=== PATIENT | male | born 1955 | race Hispanic/Latino ===

== ENCOUNTER 2016-11-25 20:10 | Emergency (ER) | payer BC ==
[2016-11-25 20:15] VITALS: BP 156/95
[2016-11-25] MEDS ORDERED: BOOSTRIX IM ONE (20:21)
[2016-11-25] MEDS ORDERED: NORCO 5/325 PO ONE (20:21)
[2016-11-25] MEDS ORDERED: XYLOCAINE 1% 20 mL INFILTRATI ONE (20:21)
--- NOTE | 2016-11-25 20:57 | XRay Report ---
FINAL REPORT EXAM: XR FINGER(S) 2+V LT HISTORY: fb 5th finger COMPARISONS: None. FINDINGS: Three views left hand A fishhook is seated within the volar soft tissues of the distal 5th finger. Additional hooks project over the hand on AP view. No fractures. 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 IMPRESSION: [place] is seated within the volar soft tissues of the distal 5th finger.
[2016-11-25] MEDS ORDERED: TRIPLE ANTIBIOTIC TP ONE (21:03)
[2016-11-25] MEDS ORDERED: KEFLEX PO ONE (21:03)
--- NOTE | 2016-11-25 21:19 | Emergency Department Report ---
Entered by JOSE JUAN RUCKER, acting as scribe for RAMON VARGHESE NP. - General Chief Complaint: Wound/Laceration Stated Complaint: FISHING HOOK IN LT HAND Time Seen by Provider: 11/25/16 20:18 Source: patient Mode of arrival: Ambulatory Limitations: No Limitations - History of Present Illness Initial Comments: Patient is a 61 y.o. male who presents to ED for evaluation of wound at fishhook embedded in the fifth digit of the left hand with associated constant, 10/10 pain. 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 The hernandez flipped, causing the fishhook to become embedded into the patient's digit with sudden onset pain. He notes that he attempted to pull the hook out of his digit on his own, but thinks he made the wound worse as the hook is barbed. Patient denies other focal pain or other injuries. -: Sudden, minutes(s) (30) Location: other (fifth digit of the left hand) Extremity Location: Left: Hand (5th finger ) Place: outdoors (while fishing) Patient Tetanus UTD: No Context: accidental Associated Symptoms: pain, suspect foreign body present, other (foreign body ( fishhook) present in digit). denies: loss of feeling/numbness, weakness followed by dizziness, nausea/vomiting, fever Treatments Prior to Arrival: other (Patient attempted to remove the fishhook and fears he made the wound worse as the hook was barbed. ) - Related Data Home Medications Medication Instructions Recorded Confirmed Last Taken Aspirin EC [Aspirin Enteric Coated 81 mg PO QDAY 03/17/15 03/17/15 03/17/15 TAB] AtorvaSTATin [Lipitor] 20 mg PO QDAY 03/17/15 03/17/15 03/17/15 Etanercept [Enbrel] 25 mg SQ 2XW 03/17/15 03/17/15 Unknown Prednisone [predniSONE (Delta) ER 5 mg PO QDAY 03/17/15 03/17/15 03/17/15 TAB] Ramipril 10 mg PO QDAY 03/17/15 03/17/15 03/17/15 Previous Rx's Medication Instructions Recorded Last Taken Type Oxycodone HCl/Acetaminophen 1 each PO Q6HR PRN #20 tablet 03/17/15 Unknown Rx [Percocet 10/325 mg] Cephalexin [Keflex] 500 mg PO Q6HR #28 capsule 11/25/16 Unknown Rx Allergies Allergy/AdvReac Type Severity Reaction Status Date / Time nalbuphine HCl [From Nubain] Allergy Unknown Verified 03/27/16 04:59 tramadol Allergy Unknown Verified 03/27/16 04:59 butorphanol tartrate AdvReac Unknown Verified 01/28/14 19:16 [From Stadol] ketorolac tromethamine AdvReac Unknown Verified 01/28/14 19:16 [From Toradol] ED Review of Systems Comment: All other systems reviewed and negative Constitutional: denies: chills, diaphoresis, fever Eyes: denies: eye pain ENT: denies: ear pain, throat pain Respiratory: denies: cough, shortness of breath, wheezing Cardiovascular: denies: chest pain, palpitations, syncope Gastrointestinal: denies: abdominal pain, nausea, vomiting Musculoskeletal: other (Positive for pain localized to wound at the fifth digit of the left hand. Negative for other focal pain.). denies: back pain Skin: other (Positive for wound with embedded fishhook at the fifth digit of the left hand. ). denies: rash Neurological: denies: headache, weakness Psychiatric: denies: anxiety, depression ED Past Medical Hx - Past Medical History Hx Hypertension: Yes Hx Arthritis: Yes Additional medical history: hyperlipidemia - Surgical History Additional Surgical History: open heart surgery, stomach surgery , right total knee replacement. - Social History Smoking Status: Never Smoker Substance Use Type: None - Medications Home Medications: Home Medications Medication Instructions Recorded Confirmed Last Taken Type Aspirin EC [Aspirin Enteric Coated 81 mg PO QDAY 03/17/15 03/17/15 03/17/15 History TAB] AtorvaSTATin [Lipitor] 20 mg PO QDAY 03/17/15 03/17/15 03/17/15 History Etanercept [Enbrel] 25 mg SQ 2XW 03/17/15 03/17/15 Unknown History Oxycodone HCl/Acetaminophen 1 each PO Q6HR PRN #20 tablet 03/17/15 Unknown Rx [Percocet 10/325 mg] Prednisone [predniSONE (Delta) ER 5 mg PO QDAY 03/17/15 03/17/15 03/17/15 History TAB] Ramipril 10 mg PO QDAY 03/17/15 03/17/15 03/17/15 History Cephalexin [Keflex] 500 mg PO Q6HR #28 capsule 11/25/16 Unknown Rx ED Physical Exam - General Limitations: No Limitations General appearance: alert, in no apparent distress, other (appears in pain, holding left hand ) - Head Head exam: Present: atraumatic, normocephalic - Eye Eye exam: Present: normal appearance, PERRL, EOMI. Absent: scleral icterus, conjunctival injection Pupils: Present: normal accommodation - ENT ENT exam: Present: normal exam, normal orophraynx, mucous membranes moist, normal external ear exam - Neck Neck exam: Present: normal inspection, full ROM. Absent: tenderness, meningismus, lymphadenopathy, thyromegaly - Respiratory Respiratory exam: Present: normal lung sounds bilaterally, other (Normal work of breathing. ). Absent: respiratory distress, wheezes, rales, rhonchi, accessory muscle use - Cardiovascular Cardiovascular Exam: Present: regular rate, normal rhythm, normal heart sounds. Absent: systolic murmur, diastolic murmur, rubs, gallop - GI/Abdominal GI/Abdominal exam: Present: soft. Absent: distended, tenderness - Rectal Rectal exam: Present: deferred - Extremities Exam Extremities exam: Present: tenderness, other ([place] to the left distal fifth digit). Absent: normal inspection - Expanded Upper Extremity Exam Left General: Present: foreign body (fishhook to the distal left fifth digit) Shoulder Exam: Present: normal inspection Upper Arm exam: Present: normal inspection Elbow exam: Present: normal inspection, full ROM Forearm Wrist exam: Present: normal inspection Hand Wrist exam: Present: full ROM (sp removal of fish hook), tenderness, swelling, other ([place] to the left distal fifth digit). Absent: normal inspection, nail avulsion, subungual hematoma - Back Exam Back exam: Present: normal inspection, full ROM - Neurological Exam Neurological exam: Present: alert, oriented X3 - Psychiatric Psychiatric exam: Present: normal affect, normal mood - Skin Skin exam: Present: warm, other ([place] to the distal fifth digit of the left hand. Otherwise C/D/I. ). Absent: rash ED Course Vital Signs 11/25/16 20:12 Temperature 97.9 F Pulse Rate 89 Respiratory 18 Rate Blood Pressure 156/95 O2 Sat by Pulse 100 Oximetry - Reevaluation(s) Reevaluation #1: 11/25/16 21:11 PT reports decrease pain sp fb removal. PT's TDap vaccine has been updated. PT given strict return precautions. PT verbalizes understanding. Reevaluation #2: 11/25/16 21:24 PT stated he had no pain medication at home. I originally wrote the pt a RX for Tylenol #3, however, after reviewing pt's RX hx in the [employer] aware website, discovered that he filled 120 tablets of Percocet yesterday. Will discontinue my RX. - Nerve Block Consent Obtained: verbal consent, emergent situation Local Anesthetic Used: Lidocaine 1% Amount of anesthesia used: 5 Side: left (5th finger ) Nerve Blocks: digital Procedure Successful: Yes Complications: none Patient Tolerated Procedure: well, no complications Additional Comments: After pt had good pain control. an 18 gauge needle was used to push soft tissue off of embedded fishing hook and the hook was backed out. the hook was removed in it's entirety. Puncture wound flushed with sterile saline. PT tolerated the procedure well. PT has no immediate complications. - Pulse Oximetry Interpretation Digit-Finger Initial Pulse Oximetry Readin Actions Taken: none ED Medical Decision Making - Radiology Data Radiology results: image reviewed xr finger - fb - Differential Diagnosis fb Critical Care Time: No ED Disposition Clinical Impression: Need for Tdap vaccination Fishing hook foreign body Qualifiers: Encounter type: initial encounter Qualified Code(s): W45.8XXA - Other foreign body or object entering through skin, initial encounter Disposition: - TO HOME OR SELFCARE Is pt being admited?: No Does the pt Need Aspirin: No Condition: Stable Instructions: Soft Tissue Foreign Body (ED), Finger Laceration (ED) Additional Instructions: Finish all antibiotics Your finger may be swollen and bruised from the trauma but it should not be red , warm or have foul drainage. If you experience those symptoms, edi return to the ED. follow up with PCP in 3-5 days and recheck your bp at follow up Prescriptions: Cephalexin [Keflex] 500 mg PO Q6HR #28 capsule Referrals: PRIMARY CARE, [Primary Care Provider] - 3-5 Days CHASITY KEEN MD [Staff Physician] - 3-5 Days [facility] [Outside] - 3-5 Days Time of Disposition: 21:18 This documentation as recorded by the [email or web address] cameron KELLY,accurately reflects the service I personally performed and the decisions made by ,RAMON VARGHESE , .NET PROGRAMMER.
== END 2016-11-25 21:37 | disposition home or self-care (01) ==
LOC: ED 20:10
DX: S60.457A Superficial foreign body of left little finger, initial encounter (principal); I10 Essential (primary) hypertension; M19.90 Unspecified osteoarthritis, unspecified site; E78.5 Hyperlipidemia, unspecified; Z79.82 Long term (current) use of aspirin; Z88.6 Allergy status to analgesic agent; Z88.8 Allergy status to other drugs, medicaments and biological substances; W45.8XXA Other foreign body or object entering through skin, initial encounter; Y93.89 Activity, other specified; Y92.89 Other specified places as the place of occurrence of the external cause; Y99.8 Other external cause status
CPT/HCPCS: 90471; 90715; 99283; A6250